=== PATIENT | male | born 1965 | race Caucasian/White ===

== ENCOUNTER 2025-02-22 10:04 | Outpatient (REF) | payer BC, SELFPAY ==
--- NOTE | ~2025-02-22 | XR_ITS ---
Exam: 4 view lumbar spine TECHNIQUE: AP, and lateral: Flexion, neutral, and extension view x-rays of the lumbar spine. Prior: None INDICATION:M54.9 - Dorsalgia, unspecified FINDINGS: Moderate chronic stool is present. 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 Levoscoliosis measured 16 degrees T12-L1: Unremarkable L1-L2: Subtle retrolisthesis without instability L2-L3: Unremarkable L3-L4: Unremarkable L4-L5: There is moderate disc space narrowing with endplate osteophytes and sclerosis. There is no instability. There is facet osteophytes and sclerosis L5-S1: There is facet sclerosis and osteophytes. There is no instability. XR/XR lumbar spine 4V min IMPRESSION: Moderate degenerative disc disease and facet arthropathy is present at L4-5. Mild levoscoliosis There is no instability. Electronically signed by: Sam Casillas MD 02/22/2025 11:47 AM EDT
--- OUTSIDE RECORDS SUMMARY | 2025-02-22 11:44 | XMS_ITS ---
Author Name [facility] Organization Unknown Results Test Name/Text Value Interpretation Date Range Source Glucose Bld-mCnc 345.0 mg/dL Above high normal 09/14/2024 70 - 199 [facility] Glucose Bld-mCnc 177.0 mg/dL Normal 09/14/2024 70 - 199 [facility] Glucose Bld-mCnc 205.0 mg/dL Above high normal 09/13/2024 70 - 199 [facility] Glucose Bld-mCnc 229.0 mg/dL Above high normal 09/13/2024 70 - 199 [facility] Glucose Bld-mCnc 278.0 mg/dL Above high normal 09/13/2024 70 - 199 [facility] Glucose Bld-mCnc 248.0 mg/dL Above high normal 09/13/2024 70 - 199 [facility] Glucose Bld-mCnc 162.0 mg/dL Normal 09/13/2024 70 - 199 [facility] Glucose Bld-mCnc 253.0 mg/dL Above high normal 09/12/2024 70 - 199 [facility] Glucose Bld-mCnc 339.0 mg/dL Above high normal 09/12/2024 70 - 199 [facility] Glucose Bld-mCnc 293.0 mg/dL Above high normal 09/12/2024 70 - 199 [facility] Glucose Bld-mCnc 229.0 mg/dL Above high normal 09/11/2024 70 - 199 [facility] Glucose Bld-mCnc 229.0 mg/dL Above high normal 09/11/2024 70 - 199 [facility] Glucose Bld-mCnc 221.0 mg/dL Above high normal 09/11/2024 70 - 199 [facility] Calcium SerPl-mCnc 8.7 mg/dL Normal 09/11/2024 8.4 - 10.2 [facility] CO2 SerPl-sCnc 28.0 mmol/L Normal 09/11/2024 24 - 32 [facility] BUN/Creat SerPl 17.8 Normal 09/11/2024 12 - 20 [facility] Creat SerPl-mCnc 0.9 mg/dL Normal 09/11/2024 0.7 - 1.3 CT [facility] Sodium SerPl-sCnc 134.0 mmol/L Below low normal 09/11/2024 1 35 - 145 [facility] Anion Gap SerPl-sCnc 8.0 Normal 09/11/2024 5 - 14 [facility] BUN SerPl-mCnc 16.0 mg/dL Normal 09/11/2024 9 - 20 [facility] Glucose SerPl-mCnc 227.0 mg/dL Above high normal 09/11/2024 70 - 99 [facility] Chloride SerPl-sCnc 98.0 mmol/L Normal 09/11/2024 98 - 107 [facility] Potassium SerPl-sCnc 3.9 mmol/L Normal 09/11/2024 3.5 - 5.1 [facility] eGFRcr SerPlBld CKD-EPI 2020 98.0 mL/min/1.73m2 Normal 09/11/2024 - [facility] RBC # Bld Auto 4.52 M/mcL Below low normal 09/11/2024 4.7 - 6 [facility] Platelet # Bld Auto 205.0 K/mcL Normal 09/11/2024 150 - 450 [facility] Hgb Bld-mCnc 12.8 g/dL Below low normal 09/11/2024 13.5 - 18 [facility] RDW RBC Auto-Rto 13.2 % Normal 09/11/2024 12.1 - 17.7 [facility] Hct VFr Bld Auto 37.7 % Below low normal 09/11/2024 40 - 54 [facility] WBC # Bld Auto 6.5 K/mcL Normal 09/11/2024 4 - 10.5 [facility] MCV RBC Auto 83.5 FL Normal 09/11/2024 78 - 100 [facility] MCH RBC Qn Auto 28.4 pcg Normal 09/11/2024 25 - 33 [facility] MCHC RBC Auto-mCnc 34.0 g/dL Normal 09/11/2024 32 - 36 [facility] PMV Bld Auto 7.6 FL Normal 09/11/2024 7.4 - 11.4 [facility] Glucose Bld-mCnc 204.0 mg/dL Above high normal 09/11/2024 70 - 199 [facility] Glucose Bld-mCnc 256.0 mg/dL Above high normal 09/11/2024 70 - 199 [facility] Glucose Bld-mCnc 215.0 mg/dL Above high normal 09/10/2024 70 - 199 [facility] Glucose Bld-mCnc 252.0 mg/dL Above high normal 09/10/2024 70 - 199 [facility] Glucose SerPl-mCnc 192.0 mg/dL Normal 09/10/2024 70 - 199 [facility] Sodium SerPl-sCnc 132.0 mmol/L Below low normal 09/10/2024 1 35 - 145 [facility] CO2 SerPl-sCnc 24.0 mmol/L Normal 09/10/2024 24 - 32 [facility] Calcium SerPl-mCnc 8.7 mg/dL Normal 09/10/2024 8.4 - 10.2 [facility] BUN SerPl-mCnc 14.0 mg/dL Normal 09/10/2024 9 - 20 [facility] Potassium SerPl-sCnc 3.8 mmol/L Normal 09/10/2024 3.5 - 5.1 [facility] Anion Gap SerPl-sCnc 11.0 Normal 09/10/2024 5 - 14 [facility] Chloride SerPl-sCnc 97.0 mmol/L Below low normal 09/10/2024 98 - 107 [facility] BUN/Creat SerPl 17.5 Normal 09/10/2024 12 - 20 [facility] Creat SerPl-mCnc 0.8 mg/dL Normal 09/10/2024 0.7 - 1.3 CT [facility] eGFRcr SerPlBld CKD-EPI 2020 101.0 mL/min/1.73m2 Normal 09/10/2024 - [facility] Platelet # Bld Auto 173.0 K/mcL Normal 09/10/2024 150 - 450 [facility] MCV RBC Auto 83.8 FL Normal 09/10/2024 78 - 100 [facility] Hct VFr Bld Auto 39.5 % Below low normal 09/10/2024 40 - 54 [facility] PMV Bld Auto 7.5 FL Normal 09/10/2024 7.4 - 11.4 [facility] MCH RBC Qn Auto 28.3 pcg Normal 09/10/2024 25 - 33 [facility] WBC # Bld Auto 6.4 K/mcL Normal 09/10/2024 4 - 10.5 [facility] RDW RBC Auto-Rto 13.3 % Normal 09/10/2024 12.1 - 17.7 [facility] RBC # Bld Auto 4.72 M/mcL Normal 09/10/2024 4.7 - 6 [facility] MCHC RBC Auto-mCnc 33.8 g/dL Normal 09/10/2024 32 - 36 [facility] Hgb Bld-mCnc 13.4 g/dL Below low normal 09/10/2024 13.5 - 18 [facility] Glucose Bld-mCnc 215.0 mg/dL Above high normal 09/10/2024 70 - 199 [facility] Glucose Bld-mCnc 271.0 mg/dL Above high normal 09/09/2024 70 - 199 [facility] Glucose Bld-mCnc 216.0 mg/dL Above high normal 09/09/2024 70 - 199 [facility] E coli DNA Bld Pos Ql YOHAN+non-probe Detected Abnormal 09/10/2024 - [facility] Creat SerPl-mCnc 1.0 mg/dL Normal 09/09/2024 0.7 - 1.3 [facility] Chloride SerPl-sCnc 98.0 mmol/L Normal 09/09/2024 98 - 107 [facility] Sodium SerPl-sCnc 132.0 mmol/L Below low normal 09/09/2024 1 35 - 145 [facility] BUN SerPl-mCnc 13.0 mg/dL Normal 09/09/2024 9 - 20 [facility] Calcium SerPl-mCnc 8.8 mg/dL Normal 09/09/2024 8.4 - 10.2 [facility] CO2 SerPl-sCnc 25.0 mmol/L Normal 09/09/2024 24 - 32 [facility] Potassium SerPl-sCnc 3.8 mmol/L Normal 09/09/2024 3.5 - 5.1 [facility] eGFRcr SerPlBld CKD-EPI 2020 86.0 mL/min/1.73m2 Normal 09/09/2024 - [facility] Glucose SerPl-mCnc 204.0 mg/dL Above high normal 09/09/2024 70 - 199 [facility] Anion Gap SerPl-sCnc 9.0 Normal 09/09/2024 5 - 14 [facility] BUN/Creat SerPl 13.0 Normal 09/09/2024 12 - 20 [facility] Hct VFr Bld Auto 41.3 % Normal 09/09/2024 40 - 54 [facility] WBC # Bld Auto 5.9 K/mcL Normal 09/09/2024 4 - 10.5 [facility] Hgb Bld-mCnc 13.9 g/dL Normal 09/09/2024 13.5 - 18 [facility] PMV Bld Auto 7.5 FL Normal 09/09/2024 7.4 - 11.4 [facility] MCH RBC Qn Auto 28.7 pcg Normal 09/09/2024 25 - 33 [facility] MCHC RBC Auto-mCnc 33.5 g/dL Normal 09/09/2024 32 - 36 [facility] RBC # Bld Auto 4.83 M/mcL Normal 09/09/2024 4.7 - 6 [facility] MCV RBC Auto 85.5 FL Normal 09/09/2024 78 - 100 [facility] RDW RBC Auto-Rto 13.1 % Normal 09/09/2024 12.1 - 17.7 [facility] Platelet # Bld Auto 180.0 K/mcL Normal 09/09/2024 150 - 450 [facility] Glucose Bld-mCnc 182.0 mg/dL Normal 09/09/2024 70 - 199 [facility] Glucose Bld-mCnc 187.0 mg/dL Normal 09/08/2024 70 - 199 [facility] Vancomycin Trough SerPl-mCnc 7.4 mcg/mL Below low normal 09/08/2024 10 - 20 [facility] Glucose Bld-mCnc 220.0 mg/dL Above high normal 09/08/2024 70 - 199 [facility] BUN/Creat SerPl 22.0 Above high normal 09/08/2024 12 - 20 [facility] BUN SerPl-mCnc 22.0 mg/dL Above high normal 09/08/2024 9 - 2 0 [facility] Creat SerPl-mCnc 1.0 mg/dL Normal 09/08/2024 0.7 - 1.3 [facility] Chloride SerPl-sCnc 99.0 mmol/L Normal 09/08/2024 98 - 107 [facility] eGFRcr SerPlBld CKD-EPI 2020 86.0 mL/min/1.73m2 Normal 09/08/2024 - [facility] Potassium SerPl-sCnc 4.0 mmol/L Normal 09/08/2024 3.5 - 5.1 [facility] Sodium SerPl-sCnc 135.0 mmol/L Normal 09/08/2024 135 - 14 5 [facility] Glucose SerPl-mCnc 211.0 mg/dL Above high normal 09/08/2024 70 - 199 [facility] Anion Gap SerPl-sCnc 8.0 Normal 09/08/2024 5 - 14 [facility] CO2 SerPl-sCnc 28.0 mmol/L Normal 09/08/2024 24 - 32 [facility] Calcium SerPl-mCnc 8.7 mg/dL Normal 09/08/2024 8.4 - 10.2 [facility] Glucose Bld-mCnc 166.0 mg/dL Normal 09/08/2024 70 - 199 [facility] Glucose Bld-mCnc 287.0 mg/dL Above high normal 09/07/2024 70 - 199 [facility] Hgb Bld-mCnc 13.5 g/dL Normal 09/07/2024 13.5 - 18 [facility] RBC # Bld Auto 4.63 M/mcL Below low normal 09/07/2024 4.7 - 6 [facility] MCHC RBC Auto-mCnc 34.2 g/dL Normal 09/07/2024 32 - 36 [facility] Platelet # Bld Auto 236.0 K/mcL Normal 09/07/2024 150 - 450 [facility] Hct VFr Bld Auto 39.3 % Below low normal 09/07/2024 40 - 54 [facility] WBC # Bld Auto 9.8 K/mcL Normal 09/07/2024 4 - 10.5 [facility] MCH RBC Qn Auto 29.1 pcg Normal 09/07/2024 25 - 33 [facility] MCV RBC Auto 85.0 FL Normal 09/07/2024 78 - 100 [facility] RDW RBC Auto-Rto 13.1 % Normal 09/07/2024 12.1 - 17.7 [facility] PMV Bld Auto 8.1 FL Normal 09/07/2024 7.4 - 11.4 [facility] Glucose Bld-mCnc 219.0 mg/dL Above high normal 09/07/2024 70 - 199 [facility] Glucose Bld-mCnc 119.0 mg/dL Normal 09/07/2024 70 - 199 [facility] Glucose Bld-mCnc 262.0 mg/dL Above high normal 09/07/2024 70 - 199 [facility] Glucose Bld-mCnc 409.0 mg/dL Above high normal 09/07/2024 70 - 199 [facility] Glucose Bld-mCnc 412.0 mg/dL Above high normal 09/07/2024 70 - 199 [facility] BUN SerPl-mCnc 24.0 mg/dL Above high normal 09/07/2024 9 - 2 0 [facility] CO2 SerPl-sCnc 24.0 mmol/L Normal 09/07/2024 24 - 32 [facility] Creat SerPl-mCnc 1.3 mg/dL Normal 09/07/2024 0.7 - 1.3 [facility] Anion Gap SerPl-sCnc 13.0 Normal 09/07/2024 5 - 14 [facility] Chloride SerPl-sCnc 98.0 mmol/L Normal 09/07/2024 98 - 107 [facility] eGFRcr SerPlBld CKD-EPI 2020 63.0 mL/min/1.73m2 Normal 09/07/2024 - [facility] Sodium SerPl-sCnc 135.0 mmol/L Normal 09/07/2024 135 - 14 5 [facility] BUN/Creat SerPl 18.5 Normal 09/07/2024 12 - 20 [facility] Calcium SerPl-mCnc 8.8 mg/dL Normal 09/07/2024 8.4 - 10.2 [facility] Potassium SerPl-sCnc 4.9 mmol/L Normal 09/07/2024 3.5 - 5.1 [facility] Glucose SerPl-mCnc 556.0 mg/dL Critically high 09/07/2024 70 - 199 [facility] Hct VFr Bld Auto 44.9 % Normal 09/07/2024 40 - 54 [facility] RBC # Bld Auto 5.19 M/mcL Normal 09/07/2024 4.7 - 6 [facility] Eosinophil # Bld Auto 0.0 K/mcL Normal 09/07/2024 0 - 0.5 [facility] Neutrophils/leuk NFr Bld Auto 78.9 % Above high normal 09/07/2024 44 - 74 [facility] Platelet # Bld Auto 241.0 K/mcL Normal 09/07/2024 150 - 450 [facility] Basophils # Bld Auto 0.0 K/mcL Normal 09/07/2024 0 - 0.2 [facility] Monocytes/leuk NFr Bld Auto 1.6 % Below low normal 09/07/2024 2 - 12 [facility] RDW RBC Auto-Rto 13.7 % Normal 09/07/2024 12.1 - 17.7 [facility] Hgb Bld-mCnc 14.7 g/dL Normal 09/07/2024 13.5 - 18 [facility] Monocytes # Bld Auto 0.1 K/mcL Normal 09/07/2024 0 - 0.8 [facility] Neutrophils # Bld Auto 3.3 K/mcL Normal 09/07/2024 1.8 - 7.8 [facility] Lymphocytes/leuk NFr Bld Auto 19.2 % Below low normal 09/07/2024 20 - 48 [facility] MCV RBC Auto 86.5 FL Normal 09/07/2024 78 - 100 [facility] WBC # Bld Auto 4.2 K/mcL Normal 09/07/2024 4 - 10.5 [facility] MCH RBC Qn Auto 28.3 pcg Normal 09/07/2024 25 - 33 [facility] Lymphocytes # Bld Auto 0.8 K/mcL Below low normal 09/07/2024 1 - 3.2 [facility] Eosinophil/leuk NFr Bld Auto 0.0 % Normal 09/07/2024 0 - 6 [facility] PMV Bld Auto 8.1 FL Normal 09/07/2024 7.4 - 11.4 [facility] Basophils/leuk NFr Bld Auto 0.3 % Normal 09/07/2024 0 - 2 [facility] MCHC RBC Auto-mCnc 32.7 g/dL Normal 09/07/2024 32 - 36 [facility] PT Bld 12.1 sec Normal 09/06/2024 10.5 - 13.3 [facility] INR PPP 1.0 Normal 09/06/2024 0.8 - 1.1 [facility] ABO Group Bld O Normal 09/06/2024 [facility] Rh Bld Positive Normal 09/06/2024 [facility] N Bld gp Ab Scn SerPl Ql Negative Normal 09/06/2024 [facility] Glucose Bld-mCnc 246.0 mg/dL Above high normal 09/06/2024 70 - 199 [facility] History of Medication Use Medication Directions Dispensed Refills Start Date End Date Stat cefTRIAXone 2 g in sterile water 20 mL syringe Infuse 2 g into a venous catheter 1 (one) time each day at the same time for 28 days. 09/14/2024 active HYDROcodone-acetami nophen (NORCO) 10-325 mg per tablet Take 1 tablet by mouth every 4 (four) hours if needed for severe pain for up to 7 days. Max Daily Amount: 6 tablets 09/14/2024 active senna (SENOKOT) 8.6 mg tablet Take 1 tablet (8.6 mg total) by mouth 2 (two) times a day. 09/14/2024 active sodium chloride 0.9 % flush 10 mL [Order 1 Start] Name: Insert Midline Signed Summary: Routine, Once, On Tue09/12/24 at 1425, For 1 occurrence [Order 1 End] [Order 2 Start] Name: Maintain IV access Signed Summary: Until discontinued, Starting on Tue09/12/24 at 1425, Until Specified [Order 2 End] [Order 3 Start] Name: Saline lock IV Si 09/12/2024 active gadoterate meglumine (CLARISCAN, DOTAREM) injection 20 mL 20 mL, intravenous, Once in imaging, Starting on Tue09/11/24 at 0027, For 1 dose 09/11/2024 5 completed HYDROmorphone (DILAUDID) tablet 6 mg 6 mg, oral, Every 3 hours PRN, severe pain, Starting on Tue09/11/24 at 1054 09/11/2024 active cefTRIAXone (ROCEPHIN) 2 g in sterile water 20 mL IV syringe 2 g, intravenous, at 400 mL/hr, Administer over 3 Minutes, Every 24 hours, First dose on Tue09/09/24 at 1100, For 14 days, Do not administer simultaneously with any calcium containing solutions via a Y-site in any patient., Indication: Skin/Soft Tissue 09/09/2024 active vancomycin (VANCOCIN) 1,500 mg in sodium chloride 0.9 % 500 mL IVPB 1,500 mg, intravenous, at 333.3 mL/hr, Administer over 90 Minutes, Every 8 hours, First dose (after last modification) on Tue09/08/24 at 1630, For 3 days, Indication: Skin/Soft Tissue 09/08/2024 aborted glimepiride (AMARYL) tablet 4 mg 4 mg, oral, Daily with breakfast, First dose (after last modification) on Tue09/08/24 at 0800 09/08/2024 active pregabalin (LYRICA) capsule 50 mg 50 mg, oral, 2 times daily, First dose (after last modification) on Tue09/12/24 at 0900 09/07/2024 active insulin regular (HumuLIN R) injection 12 Units 12 Units, subcutaneous, Once, On Tue09/07/24 at 0015, For 1 dose 09/07/2024 completed atorvastatin (LIPITOR) tablet 10 mg 10 mg, oral, Nightly, First dose on Tue09/06/24 at 2245 09/07/2024 active bisacodyL (DULCOLAX) suppository 10 mg 10 mg, rectal, Once as needed, constipation, Starting on Tue09/07/24 at 0000, For 1 dose, Phase II/On Unit, Once as needed for constipation. Starting POD#1. Administer POD#2 if no BM 09/07/2024 active dextrose (D50W) 50% injection 12.5 g 12.5 g, intravenous, Every 15 min PRN, low blood sugar, moderate hypoglycemia *Patient is Unconscious, NPO, unable to swallow: BG 54 - 69 mg/dl*, Starting on Tue09/06/24 at 202009/07/2024 active dextrose (D50W) 50% injection 25 g 25 g, intravenous, Every 15 min PRN, low blood sugar, severe hypoglycemia *Patient is Unconscious, NPO, unable to swallow: BG LESS than 54 mg/dL*, Starting on Tue09/06/24 at 202009/07/2024 active dextrose 15 gram/60 mL oral solution 15 g 15 g, oral, Every 15 min PRN, low blood sugar, hypoglycemia *Patient conscious AND able to drink and swallow safely*, Starting on Tue09/06/24 at 202009/07/2024 active dextrose 15 gram/60 mL oral solution 30 g 30 g, oral, Every 15 min PRN, low blood sugar, hypoglycemia *Patient conscious AND able to drink and swallow safely*, Starting on Tue09/06/24 at 202009/07/2024 active Glucagon HCl (rDNA) injection 1 mg 1 mg, intramuscular, Once as needed, low blood sugar, severe hypoglycemia, Starting on Tue09/06/24 at 2220, For 1 dose, Phase II/On Unit 09/07/2024 active insulin glargine (LANTUS) injection 10 Units 10 Units, subcutaneous, Nightly, First dose on Tue09/06/24 at 2245, Phase II/On Unit, Notify provider: -If patient is currently or will become NPO -If TPN was or will be interrupted or discontinued -For approval to hold long acting insulin 09/07/2024 active insulin lispro injection 2-12 Units 2-12 Units, subcutaneous, 3 times daily before meals, First dose on Tue09/07/24 at 0730, Phase II/On Unit, Indication: Total Daily Dose (TDD) 40 - 80 units. Correction Scale: Moderate Dose Administer with meal and/or mealtime dose of insulin to correct high blood glucose If mealtime insulin dose no 09/07/2024 active insulin lispro injection 5 Units 5 Units, subcutaneous, 3 times daily with meals, First dose on Tue09/07/24 at 0800, Phase II/On Unit, Mealtime Insulin - Administer with meal -Do NOT give if patient NPO or expected to eat LESS than 50% of diane 09/07/2024 active pantoprazole (PROTONIX) EC tablet 40 mg 40 mg, oral, Daily PRN, heartburn, reflux, Starting on Tue09/07/24 at 0000, Phase II/On Unit, Do not crush, chew, or split. 09/07/2024 active polyethylene glycol (MIRALAX) packet 17 g 17 g, oral, Daily, First dose on Tue09/07/24 at 0900, Phase II/On Unit 09/07/2024 active HYDROmorphone (DILAUDID) 4 mg tablet Take 1 tablet (4 mg total) by mouth every 6 (six) hours if needed for moderate pain. Max Daily Amount: 16 mg 09/06/2024 5 aborted lactated Ringer's infusion 100 mL/hr, intravenous, Continuous, Starting on Tue09/10/24 at 2300 09/06/2024 active acetaminophen (TYLENOL) 500 mg tablet Take 2 tablets (1,000 mg total) by mouth every 8 (eight) hours for 10 days. 09/06/2024 active HYDROmorphone (DILAUDID) injection 0.5 mg 0.5 mg, intravenous, Every 15 min PRN, severe pain, Starting on Tue09/06/24 at 1356, For 4 doses, Recovery (only), For pain (7-10). 09/06/2024 completed orphenadrine (NORFLEX) injection 30 mg 30 mg, intravenous, Once as needed, muscle spasms, Starting on Tue09/06/24 at 1356, For 1 dose, Recovery (only) 09/06/2024 completed benzocaine-menthoL (CEPACOL SORE THROAT) 15-3.6 mg lozenge 1 lozenge 1 lozenge, Mouth/Throat, Every 2 hours PRN, sore throat, Starting on Tue09/06/24 at 1344, Phase II/On Unit 09/06/2024 active docusate sodium (COLACE) capsule 100 mg 100 mg, oral, 2 times daily, First dose on Tue09/06/24 at 1400, Phase II/On Unit, Hold for loose stools 09/06/2024 active HYDROmorphone (DILAUDID) injection 1 mg 1 mg, intravenous, Every 4 hours PRN, severe pain, Starting on Tue09/06/24 at 1838 09/06/2024 active naloxone (NARCAN) injection 0.4 mg 0.4 mg, intravenous, Every 15 min PRN, opioid reversal, respiratory depression, Starting on Lauren 09/06/24 at 1344, Phase II/On Unit, Every 15min PRN for opioid reversal, respiratory depression. PRN respiratory rate less than 9 or RASS score of -4 to -5 09/06/2024 active ondansetron (PF) (ZOFRAN) injection 4 mg 4 mg, intravenous, Every 6 hours PRN, nausea, vomiting, Starting on Lauren 09/06/24 at 1344, Phase II/On Unit, Give zofran first 09/06/2024 active senna (SENOKOT) tablet 8.6 mg 8.6 mg (1 tablet), oral, 2 times daily, First dose on Lauren 09/06/24 at 1400, Phase II/On Unit, Hold for loose stools 09/06/2024 active Mounjaro 10 mg/0.5 mL injection Inject under the skin 1 (one) time per week. 06/28/2024 active traMADoL (ULTRAM) 50 mg tablet Take 1 tablet (50 mg total) by mouth See administration instructions. every 4 to 6 hours prn for pain 06/26/2024 active losartan (COZAAR) 50 mg tablet Take 0.5 tablets (25 mg total) by mouth 1 (one) time each day. 06/25/2024 active Jardiance 10 mg tablet Take 1 tablet (10 mg total) by mouth 1 (one) time each day. 06/20/2024 active metFORMIN (GLUCOPHAGE) 1,000 mg tablet Take 1 tablet (1,000 mg total) by mouth 2 (two) times a day. 05/13/2024 active simvastatin (ZOCOR) 40 mg tablet Take 1 tablet (40 mg total) by mouth 1 (one) time each day. 05/13/2024 active pregabalin (LYRICA) 50 mg capsule Take 1 capsule (50 mg total) by mouth 1 (one) time each day for 5 days. Max Daily Amount: 50 mg active Allergies Allergen Reaction Severity Comment Documented Date Source Statu s SULFA (SULFONAMIDE ANTIBIOTICS) Skin turns red 09/06/2024 [facility] active LISINOPRIL DIZZINESS 07/04/2024 [facility] activ e OXYCODONE Skin smells [facility] OXYCODONE-ACETAMIN OPHEN Not tylenol [facility] PENICILLINS HIVES As child [facility] Problems Problem Status Onset Date Problem Type Date of Resolution Source Infection following a procedure, deep incisional surgical site, initial encounter active 2024-09-07 ProblemAct [facility] Infection of lumbar spine active 2024-09-06 ProblemAct [facility] Tachycardia active EncounterDiagnosisAct [facility] Infection of lumbar spine active 2024-09-06 ProblemAct [facility] Encounters Encounter Type Encounter Reason Primary Diagnosis Location Date Ambulatory Follow-up Follow-up [facility] 10/09/[address] [facility] 10/02/2024 Ambulatory [facility] 09/17/2024 Inpatient Osteomyelitis of vertebra, lumbar region Osteomyelitis of vertebra, lumbar region [facility] 09/06/2024 Ambulatory Encounter for other preprocedural examination Encounter for other preprocedural examination [facility] 08/02/2024 Ambulatory Tachycardia, unspecified Tachycardia, unspecified [facility] 07/23/2024 Ambulatory ROUTINE Spinal stenosis, lumbar region with neurogenic claudication [facility] 07/20/2024 Ambulatory Tachycardia, unspecified Tachycardia, unspecified [facility] 07/04/2024 Ambulatory Encounter for other preprocedural examination Encounter for other preprocedural examination [facility] 07/04/2024 Care Team Organization Name Specialty Phone Email Start Date End [facility] te [employer] [facility] 10/17/2024 [facility] 07/07/2024 [facility] 07/04/2024 [facility] 06/29/2024 [facility] 06/28/2024 [facility] 06/22/2024 025
== END 2025-02-22 10:05 | disposition home or self-care (01) ==
LOC: HO.HOSX 10:04
PROVIDERS: PCP Internal Medicine; Visit Provider Physician Assistant
DX: M51.360 Other intervertebral disc degeneration, lumbar region with discogenic back pain only (principal)
CPT/HCPCS: 72110

== ENCOUNTER 2025-02-22 10:04 | Outpatient (AMB) | payer BC, SELFPAY ==
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
--- OUTSIDE RECORDS SUMMARY | 2025-02-22 10:24 | XMS_ITS | Clinical Summary ---
Author Organization [facility] Address [address] [place] [address] Care Team Providers Care Position Classification Specialist Name Role Phone Unavailable Primary Care Provider Unavailabl e Social History Tobacco Use Types Packs/Day Years Used Date Smoking Tobacco: Never Assessed Sex and Gender Information Value Date Recorded Sex Assigned at Not on file Gender Identity Not on file Sexual Orientation Not on file Plan of Treatment Health Maintenance Due Date Last Done Comments Hepatitis C Screening 1964 COVID-19 Vaccine (#1) 01/06/1965 Depression Screening 1976 Preventative Health Evaluation 1982 DTap / Tdap / Td (1 - Tdap) 1983 Colon Cancer Screening (Colonoscopy) 2009 Shingrix-Zoster Vaccine (1 of 2) 2014 Influenza Vaccine (#1) 2025 RSV Adult > 60+ Yrs or Pregn ant (1 - 1-dose 75+ series) 2039 Hepatitis B Vaccines Aged Out No long er eligible based on patient's age to complete this topic Pneumococcal Vaccine Aged Out No long er eligible based on patient's age to complete this topic RSV Ped < 20 months Aged Out No longe r eligible based on patient's age to complete this topic
[2025-02-22 10:31] VITALS: BMI 24.4
--- NOTE | 2025-02-22 10:31 | HO.SPINEOV ---
Vital Signs 02/22/25 10:31 Height 6 ft Weight 180 lb BMI 24.4 Intake Visit Reasons: second opinion Intake Note: Mr. Wagner is here today for a Second opinion/Low back pain. Senior Materials Planner Required: No Allergies Penicillins Allergy (Severe, Verified 02/22/25 10:34) Unknown acetaminophen (From Percocet) Adverse Reaction (Severe, Verified 02/22/25 10:34) Unknown oxycodone (From Percocet) Adverse Reaction (Severe, Verified 02/22/25 10:34) Unknown Sulfa (Sulfonamide Antibiotics) Adverse Reaction (Verified 02/22/25 10:34) Unknown Physical Exam Vital Signs: BMI result Body Mass Index 24.4 Assessment & Plan Assessment & Plan (1) Back pain: Code(s): M54.9 - Dorsalgia, unspecified Category: Medical Plan This is a very nice 59-year-old uncontrolled diabetic king who presents for evaluation of issues with his lumbar spine after 3 back surgeries. His original back surgery was in 2008 on the left at L4-5 and he underwent that procedure without any significant issues. Fast forward to June of 2024 when he was experiencing increased back pain, diagnosed with a herniated disc at L4-5 and was seen by Dr. Taylor and [place]. He was offered right L3-4 and right L4-5 decompression with diskectomy. He underwent the at procedure without any complications initially. However, the patient tells me within a week or 2 of surgery he noticed increased level of pain. There was some swelling in his wound and he was started on oral antibiotics. Eventually about 6 or so weeks into this recovery he underwent a follow up MRI and this showed an infection down to the bone of L3-4 and he was started on IV antibiotics for a month and had a washout. Ultimately the symptoms of the severe back pain associated with the infection went away. Sometime in November, I believe the 1st week of November he noticed new symptoms which were different than that what he had preoperatively. He describes this as severe unrelenting pain in his low back going around to his anterior thighs radiating down to the top of his thighs into his knees. He saw his surgeon postoperatively, MRI imaging was done and showed resolution of the infection and no residual nerve compression, and therefore no surgical intervention was offered. Because of the intensity of the pain, the patient sought out a 2nd opinion. He currently takes Robaxin and hydrocodone. PMH: Major issue in his life is that he has a uncontrolled diabetic with an A1c of 10 at the last time he checked it 6 months ago but has been higher than that into the mid teens. History of high cholesterol. He has never had any issues with the cardiopulmonary problems, liver or kidney disease he tells me. No bleeding disorders blood clots or cancer or major abdominal surgery. Social hx: Does not smoke, drink use any recreational drugs Medications: Hydrocodone, methocarbamol, Mounjaro, glimepiride, Invokana, Januvia, Jardiance, simvastatin losartan Allergies: Please see the [employer] list Physical exam: He has 2 well-healed scars in his lower lumbar spine. Strength examination reveals diffuse loss of strength more proximal than distal in the lower extremity on the right. Specifically he had 1 to 2/5 in the right hip flexor, 2-3/5 in the right quadriceps. 4-5 in the right tibialis. Left lower extremity strength reveals some mild weakness of the hip flexor but otherwise distal left lower extremity strength is full. Reflexes diffusely absent. Imaging review: Lumbar MRI imaging reviewed from June of 2024 as well as January of 2025 reveals resolution of the herniated discs seen in the imaging from June at L4-5. He has had excellent decompression at L3-4 and L4-5. There is no residual nerve compression either I or Dr. Mckeon could appreciate on this study. Obviously there scar tissue in the bed of the operation but there is no compression of the nerves. Impression: 59-year-old male, uncontrolled diabetic, presents after 2 back surgeries last fall into the winter initially consisting of a decompression at L3-4 and L4-5 with removal of herniated disc at L4-5 with subsequent postoperative washed out for infection, treated with IV antibiotics and then oral antibiotics. He recovered from the infection but developed sometime in November severe back pain going into his anterior thighs down toward his knees. His postoperative imaging shows good resolution of the previously seen stenosis and herniated discs. There is some scar tissue, but no compression of the nerves. We did flexion-extension x-rays here in the office and this did not show any evidence of instability. We do not have a clear explanation for why he has pain going down his legs after his surgery, as especially in light of the fact that these were not symptoms that he initially had at the time of his operation. Given that he has diffuse weakness more proximal in his right leg, Dr. Mckeon thinks this could represent a polyneuropathy secondary to his uncontrolled diabetes. We would like to get a nerve conduction test to evaluate for this. This should also help us to clarify if there is any degree of chronic lumbar radiculitis secondary to his scar tissue. Once this is completed I can call the patient with a final plan. If it does not show polyneuropathy and this is suspected to somehow be related to a surgery, consideration for spinal cord stimulator should be discussed with our pain management colleagues. However, I doubt with his uncontrolled diabetes that would put this and until he has some kind of more reasonable A1c result. Thank you for allowing us to care for your patient. The total time spent with this visit with this patient was 65 minutes reviewing history, physical exam, lumbar imaging review, and implementation of treatment plan or further diagnostic testing Ashok Mckeon MD,PhD [facility] Orders: Orders XR lumbar spine 4V min Today M54.9 - Dorsalgia, unspecified NE electromyogram (EMG) Today M54.9 - Dorsalgia, unspecified Coding Level of Care Code New Pt Level 5 (62111) Diagnoses Back pain M54.9
== END 2025-02-22 12:16 | disposition home or self-care (01) ==
LOC: HO.HNS 10:04
PROVIDERS: PCP Internal Medicine; Visit Provider Physician Assistant
DX: M54.9 Dorsalgia, unspecified (principal)
CPT/HCPCS: 99205

== ENCOUNTER → 2025-02-22 11:17 | Outpatient (BNV) | payer BC, SELFPAY | PROVIDERS: PCP Internal Medicine; Visit Provider Radiology Diagnostic Radiology | DX: M47.816 Spondylosis without myelopathy or radiculopathy, lumbar region (principal) | CPT/HCPCS: 72110 ==